=== PATIENT | female | born 1990 | race Caucasian/White ===

== ENCOUNTER 2021-12-13 11:55 | Inpatient (IN) ==
--- NOTE | 2021-12-13 12:20 | Emergency Department Note ---
Recheck HPI General Chief Complaint: Recheck/Abnormal Lab/Rx Stated Complaint: Low Potassium Time Seen by Provider: 12/13/21 11:56 Source: patient Mode of arrival: wheelchair Limitations: no limitations History of Present Illness HPI Narrative: 31 y/o female presents from [facility] with report of severe hypokalemia. The patient was seen by her PCP today for intractable low back pain. She has recent diagnosis of L5-S1 disc compression and LLE radiculopathy. There is also some question of a UTI. The patient had labs drawn and potassium was reported as <2.0, so she was sent here for evaluation. The patient denies heart palpitations, but is reporting some mild left-sided chest pain. She has had nausea but no vomiting for over a week with profuse daily diarrhea for about 5 days. She denies abdominal or flank pain. Denies F/C/S. Denies dysuria or hematuria. Denies melena or hematochezia. She reports a remote h/o hypokalemia for which she was given replacement. She denies new medications or supplements. Denies ilicit drug use. Occasional marijuana. Denies . Has Nexplanon. Has not tested for COVID. Not vaccinated for COVID. EKG shows NSR, no acute ST deviations to suggest ischemia. Normal intervals. One PVC. The patient is not diabetic and her presenting blood glucose is 123. Related Data Home Medications Medication Instructions Recorded Confirmed norethindrone 1 mg-ethinyl 1 tab PO QDAY 04/27/16 03/20/20 estradiol 35 mcg tablet (Nortrel) hydroxyzine HCl 25 mg tablet 25 mg PO BID 03/20/20 03/20/20 Previous Rx's Medication Instructions Recorded ondansetron HCl 4 mg tablet 4 mg PO Q6HP PRN Nausea And 03/20/20 (Zofran) Vomiting #30 tabs Allergies Allergy/AdvReac Type Severity Reaction Status Date / Time Bee Pollen Allergy Severe Anaphylaxis Verified 10/28/21 19:31 Review of Systems ROS ROS Narrative: Narrative: All systems ED: reviewed and negative except as stated. [facility] Narrative Patient History Narrative: Narrative: Medical/Surgical/Family History All Active Problems (Updated 12/13/21 @ 18:09 by Jane Coker PA-C) Cyst of Bartholin's gland duct (Acute) Hypokalemia (Acute) Dehydration (Acute) Concussion with loss of consciousness (Acute) Laceration (Acute) Fall (Acute) Nausea & vomiting (Acute) Close exposure to COVID-19 virus (Acute) Syncope (Acute) Acute alcohol intoxication (Acute) Alcohol consumption binge drinking (Acute) Abdominal pain (Acute) Precipitous delivery (Acute) labor (Acute) Decreased sensation of lower extremity (Acute) Numbness of right foot (Acute) Diarrhea (Acute) UTI (urinary tract infection) (Acute) Chest pain, rule out acute myocardial infarction (Acute) Acute posterior anal fissure (Acute) Hemorrhoids (Chronic) Urticaria (Chronic) Inguinal abscess (Chronic) Rash of body (Chronic) Medical History (Updated 12/13/21 @ 18:09 by Jane Coker PA-C) Cyst of Bartholin's gland duct Dehydration Hemorrhoids Hypokalemia Inguinal abscess Rash of body arms and legs X 4 days Urticaria Surgical History History of wisdom tooth extraction All four teeth extracted No pertinent past surgical history Family History Grandmother Diabetes Cancer Stroke Grandfather Cancer Heart disease Hypertension Other No pertinent family history Social History Smoking Status: Current every day smoker Alcohol Intake Frequency: a few times a month Exam Narrative Narrative: Narrative: General Limitations: no limitations Course Course Course Narrative: 31-year-old female presents for acute hypokalemia Reevaluation(s) Reevaluation #1: Will obtain serum potassium and give 60 mEq of oral potassium and 40 mEq of IV potassium EKG is not concerning for hyperkalemia. Troponin is undetectable. Check COVID screens and urine -->>>Negative Basic labs Reevaluation #2: UA is positive for nitrates and occult blood. Patient presents with a known UTI. We will give cefuroxime 500 mg x 1 dose Repeat potassium is 1.8. I have reached out to the hospitalist for admission. I have given additional 60 mEq oral and another 40 mEq of IV potassium. Vital Signs Vital signs: Vital Signs Temperature 97.5 F 12/13/21 12:01 Pulse Rate 101 H 12/13/21 12:01 Respiratory Rate 16 12/13/21 12:01 Blood Pressure 126/80 12/13/21 12:01 Pulse Oximetry (%) 96 12/13/21 12:01 Oxygen Delivery Method 12/13/21 12:01 Temperature 97.5 F 12/13/21 12:01 Pulse Rate 95 H 12/13/21 17:30 Respiratory Rate 30 H 12/13/21 17:30 Blood Pressure 118/89 12/13/21 17:30 Pulse Oximetry (%) 92 12/13/21 17:30 Oxygen Delivery Method 12/13/21 12:01 MDM MDM Narrative Medical decision making narrative: Hypokalemia Diarrhea Rule out chest pain UTI I suspect her hypokalemia is from extrarenal losses as she has had persistent d iarrhea for a week. She is not on medications that can cause hypokalemia, and is not diabetic. I have attempted replacement here in the ER with resulting potassium 1.8. The patient will need admission for monitoring and potassium replacement. Given her diarrhea I have ordered a stool culture. I have given her a dose of loperamide. Regarding her UTI, urine culture is pending and I have given her 1 dose of cefuroxime. EKG without acute changes to suggest ischemia and troponin was undetectable. Heart score 0. Lab Data Result diagrams: 12/13/21 16:07 Labs: Lab Results 12/13/21 12/13/21 12/13/21 Range/Units 12:19 12:25 12:25 POC Hct 40.0 (36-48) POC Sodium 139 (133-145) POC Potassium < 2.0 L* (3.3-5.1) Potassium < 1.5 L* (3.3-5.1) mmol/L POC Chloride 86 L (96-108) POC Total CO2 40.0 H (22-30) POC BUN < 3 L (6-20) POC Creatinine 0.5 L (0.6-1.2) POC Glucose 123 H (70-105) POC WB Ioniz Calcium 0.83 L (1.16-1.32) Magnesium 1.5 L (1.6-2.5) mg/dL Urine Color Urine Appearance (Clear) Urine pH (5.0-9.0) Ur Specific [place] (1.000-1.035) Urine Protein (Negative) mg/dL Urine Glucose (UA) (Negative) mg/dL Urine Ketones (Negative) mg/dL Urine Occult Blood (Negative) ulisses/mcL Urine Nitrate (Negative) Urine Bilirubin (Negative) mg/dL Urine Urobilinogen mg/dL Ur Leukocyte Esterase (Negative) /uL Urine RBC (0-3) /hpf Urine WBC (0-4) /hpf Ur Squamous Epith Cells (0-4) /hpf Urine Bacteria (0) /hpf Hyaline Casts (0-2) /lph Urine Mucus (None) /hpf Ur Culture Indicated? POC Troponin I (0.02-0.08) 12/13/21 12/13/21 12/13/21 Range/Units 12:25 13:23 16:07 POC Hct (36-48) POC Sodium (133-145) POC Potassium (3.3-5.1) Potassium 1.8 L* (3.3-5.1) mmol/L POC Chloride (96-108) POC Total CO2 (22-30) POC BUN (6-20) POC Creatinine (0.6-1.2) POC Glucose (70-105) POC WB Ioniz Calcium (1.16-1.32) Magnesium (1.6-2.5) mg/dL Urine Color Dark yellow Urine Appearance Clear (Clear) Urine pH 6.5 (5.0-9.0) Ur Specific [place] 1.025 (1.000-1.035) Urine Protein 100 mg/dl A (Negative) mg/dL Urine Glucose (UA) 100 mg/dl A (Negative) mg/dL Urine Ketones Negative (Negative) mg/dL Urine Occult Blood Trace-intact A (Negative) ulisses/mcL Urine Nitrate Positive A (Negative) Urine Bilirubin Negative (Negative) mg/dL Urine Urobilinogen Normal mg/dL Ur Leukocyte Esterase Negative (Negative) /uL Urine RBC 0 (0-3) /hpf Urine WBC 4 (0-4) /hpf Ur Squamous Epith Cells 1 (0-4) /hpf Urine Bacteria None (0) /hpf Hyaline Casts 3 H (0-2) /lph Urine Mucus Many A (None) /hpf Ur Culture Indicated? No POC Troponin I 0 L (0.02-0.08) ED POC Tests ED POC Tests: CONOR - SARS Antigen Negative HCG POC Results Negative Discharge Plan Patient/Caregiver Discharge Instructions Pt seen by JAZZ SINGER/PA only: Yes Clinical Impression: Hypokalemia, Diarrhea, UTI (urinary tract infection), Chest pain, rule out acute myocardial infarction Patient Disposition: Xfer As Inpt ([facility]) Follow up with: No,PCP [Primary Care Provider] - Prescriptions: No Action norethindrone-ethin estradiol [Nortrel ()] 1-35 mg-mcg tablet 1 tab PO QDAY hydroxyzine HCl 25 mg tablet 25 mg PO BID Label Comments: TAKE 1 TABLET BY MOUTH 4 TIMES DAILY NEEDED FOR ANXIETY due FOR FOLLOW UP in march 2020 ondansetron HCl [Zofran] 4 MG tablet 4 mg PO Q6HP PRN (Reason: Nausea And Vomiting) Qty: 30 0RF
[2021-12-13 12:23] LABS: POC Blood Urea Nitrogen < 3 (6-20); POC Calcium, Ionized 0.83 (1.16-1.32); POC Chloride 86 (96-108); POC Creatinine 0.5 (0.6-1.2); POC Glucose, Random 123 (70-105); POC Potassium < 2.0 (3.3-5.1); POC Sodium 139 (133-145)
[2021-12-13] MEDS ORDERED: POTASSIUM CHLORIDE 40 MEQ in DEXTROSE 5% IN WATER 500 ML IV ONE (12:26)
[2021-12-13] MEDS ORDERED: POTASSIUM CHLORIDE 20 MEQ TABLET PO ONE ×2 (12:26→17:27)
[2021-12-13] MEDS ORDERED: MAGNESIUM SULFATE 2 GM/50 ML BAG IV ONE (14:11)
[2021-12-13] MEDS ORDERED: NACL 0.9% W/KCL 20MEQ 1,000 ML IV SCH (14:15)
[2021-12-13 15:10] LABS: Appearance,Urine Clear (Clear); Bilirubin,Urine Negative (Negative); Color,Urine Dark yellow; Culture Indicated,Urine No; Ketones,Urine Negative (Negative); Leukocyte Esterase,Urine Negative /uL (Negative); Mucus,Urine MANY /hpf; Nitrate,Urine Positive (Negative); PH,Urine 6.5 (5.0-9.0); Specific Gravity,Urine 1.025 (1.000-1.035); Urine Blood Trace-intact ery/mcL (Negative); Urine Hyaline Cast 3 /lph (0-2); Urine RBC 0 /hpf (0-3); Urine Squamous Epithelial Cell 1 /hpf (0-4); Urine WBC 4 /hpf (0-4); Urobilinogen,Urine Normal
[2021-12-13] MEDS ORDERED: CEFUROXIME 500 MG TABLET PO ONE (17:38)
[2021-12-13] MEDS ORDERED: LOPERAMIDE 2 MG CAPSULE PO ONE (17:58)
[2021-12-13] MEDS ORDERED: LOPERAMIDE 2 MG CAPSULE PO PRN (18:48)
--- NOTE | 2021-12-13 18:55 | Internal Med History&Physical ---
HPI History of Present Illness Patient information: Note initiated : 12/13/21 at 6:50 pm Service Date, if different from initiated Date: [] Patient: Danay Goldman a 31 y/o F admitted on for Low Potassium. Chief Complaint: [Lab abnormalities] Chief complaint: Lab abnormalities History of present illness: Ms. Goldman is a 31 year old F with no known significant past medical history presents to the hospital after she was found to have severely low potassium of 1.5. The patient states that she was asymptomatic from a hypokalemia standpoint but presented to the [facility] for further evaluation of her back pa in. They did blood work and she was sent home. They called her after the labs resulted and told her she needed to go to the ER immediately. The patient states that she has been having diarrhea for the last week. She denies any diuretic use. She is not a diabetic and does not use insulin. 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 On arrival to the ER, she was hemodynamically stable and afebrile. Her potassium was repleted and the hospital service was asked admit the patient for further management and evaluation of her hypokalemia. Review of Systems All systems: reviewed and no additional remarkable complaints except as stated Constitutional Constitutional: Present as per HPI EENT Eyes: Present as per HPI; Absent blurry vision Cardiovascular Cardiovascular: Present as per HPI; Absent chest pain, dyspnea, dyspnea on exertion, leg edema or palpatations Respiratory Respiratory: Present as per HPI; Absent cough, dyspnea, dyspnea on exertion, wheezing or stridor Gastrointestinal Gastrointestinal: Present as per HPI; Absent abdominal pain, diarrhea, dysphagia, hematemesis, melena, nausea or vomiting Musculoskeletal Musculoskeletal: Present as per HPI; Absent joint swelling, limited range of motion, muscle cramps, muscle weakness or myalgias Integumentary Integumentary: Present as per HPI; Absent erythema, new lesions, rash or wounds Neurological Neurological: Present as per HPI; Absent abnormal gait, behavioral changes, focal weakness, headache(s), loss of vision, numbness, sensory deficit or syncope Endocrine Endocrine: Absent change in body appearance, fatigue or heat intolerance Hematologic/Lymphatic Hematologic/Lymphatic: Present as per HPI PFSH PFSH All Active Problems (Updated 12/13/21 @ 19:01 by Tony Casanova MD) Diarrhea (Acute) Cyst of Bartholin's gland duct (Acute) Hypokalemia (Acute) Dehydration (Acute) Concussion with loss of consciousness (Acute) Laceration (Acute) Fall (Acute) Nausea & vomiting (Acute) Close exposure to COVID-19 virus (Acute) Syncope (Acute) Acute alcohol intoxication (Acute) Alcohol consumption binge drinking (Acute) Abdominal pain (Acute) Precipitous delivery (Acute) labor (Acute) Decreased sensation of lower extremity (Acute) Numbness of right foot (Acute) Diarrhea (Acute) UTI (urinary tract infection) (Acute) Chest pain, rule out acute myocardial infarction (Acute) Acute posterior anal fissure (Acute) Hemorrhoids (Chronic) Urticaria (Chronic) Inguinal abscess (Chronic) Rash of body (Chronic) Medical History (Updated 12/13/21 @ 19:01 by Tony Casanova MD) Cyst of Bartholin's gland duct Dehydration Hemorrhoids Hypokalemia Inguinal abscess Rash of body arms and legs X 4 days Urticaria Surgical History History of wisdom tooth extraction All four teeth extracted No pertinent past surgical history Family History Grandmother Diabetes Cancer Stroke Grandfather Cancer Heart disease Hypertension Other No pertinent family history Social History smoking status: Current every day smoker alcohol intake frequency: a few times a month MEDS/ALLERGIES Home Medications and Allergies Home Medications Medication Instructions Recorded Confirmed Type norethindrone 1 mg-ethinyl 1 tab PO QDAY 04/27/16 03/20/20 History estradiol 35 mcg tablet (Nortrel) hydroxyzine HCl 25 mg tablet 25 mg PO BID 03/20/20 03/20/20 History ondansetron HCl 4 mg tablet 4 mg PO Q6HP PRN Nausea And 03/20/20 Rx (Zofran) Vomiting #30 tabs Allergies Allergy/AdvReac Type Severity Reaction Status Date / Time Bee Pollen Allergy Severe Anaphylaxis Verified 10/28/21 19:31 EXAM Constitutional Vitals: Temp Pulse Resp BP Pulse Ox O2 Del Method 97.5 F 105 H 25 H 118/89 97 12/13/21 12:01 12/13/21 18:10 12/13/21 18:10 12/13/21 17:30 12/13/21 18:10 12/13/21 12:01 General appearance: average body habitus Head Head exam: Present atraumatic, normal inspection and normocephalic Eye Eye exam: Present EOMI, normal appearance and PERRL; Absent conjunctival in jection ENT ENT exam: Present normal exam; Absent mucous membranes dry Neck Neck exam: Present full ROM; Absent lymphadenopathy Respiratory Respiratory exam: Present normal respiratory exam and CTAB; Absent decreased breath sounds, respiratory distress or wheezes Cardiovascular Cardiovascular exam: Present normal rate and rhythm and RRR; Absent JVD GI/Abdominal GI/Abdominal exam: Present normal bowel sounds and soft; Absent diminished bowel sounds, distended, guarding, mass, rebound or tenderness Neurological Exam Neurological exam: Present alert, CN II-XII intact and oriented X3 Psychiatric Psychiatric exam: Present normal affect and normal mood Skin Skin exam: Present intact and warm; Absent erythema, pallor, petechiae or rash DATA Data Completed and Pending Labs: Labs from last 24 hours 12/13/21 12/13/21 12/13/21 16:07 13:23 12:25 POC Hct POC Sodium POC Potassium Potassium 1.8 L* POC Chloride POC Total CO2 POC BUN POC Creatinine POC Glucose POC WB Ioniz Calcium Magnesium Urine Color Dark yellow Urine Appearance Clear Urine pH 6.5 Ur Specific [place] 1.025 Urine Protein 100 mg/dl A Urine Glucose (UA) 100 mg/dl A Urine Ketones Negative Urine Occult Blood Trace-intact A Urine Nitrate Positive A Urine Bilirubin Negative Urine Urobilinogen Normal Ur Leukocyte Esterase Negative Urine RBC 0 Urine WBC 4 Ur Squamous Epith Cells 1 Urine Bacteria None Hyaline Casts 3 H Urine Mucus Many A Ur Culture Indicated? No POC Troponin I 0 L 12/13/21 12/13/21 12/13/21 12:25 12:25 12:19 POC Hct 40.0 POC Sodium 139 POC Potassium < 2.0 L* Potassium < 1.5 L* POC Chloride 86 L POC Total CO2 40.0 H POC BUN < 3 L POC Creatinine 0.5 L POC Glucose 123 H POC WB Ioniz Calcium 0.83 L Magnesium 1.5 L Urine Color Urine Appearance Urine pH Ur Specific [place] Urine Protein Urine Glucose (UA) Urine Ketones Urine Occult Blood Urine Nitrate Urine Bilirubin Urine Urobilinogen Ur Leukocyte Esterase Urine RBC Urine WBC Ur Squamous Epith Cells Urine Bacteria Hyaline Casts Urine Mucus Ur Culture Indicated? POC Troponin I A/P Assessment and plan (1) UTI (urinary tract infection): Status: Acute (2) Hypokalemia: Status: Acute (3) Dehydration: Status: Acute (4) Diarrhea: Status: Acute Narrative A/P Narrative: The patient likely had acute hypokalemia in the setting of GI losses. We will start Imodium 2 mg every 6 hours p.o. standing. She will be resuscitated with IV fluids. I will start LR 75 cc an hour. We will give her KCl 60 mEq p.o. twice daily and repeat BMP tomorrow morning. The patient will have a urine culture and will follow up. She has been given a dose of cephalosporin in the ER. Time Spent With Patient Time: Total time spent is greater than 50% in coordination of care (as documented) at patient's floor/unit and/or counseling patient: Total time spent with greater than 50% in coordination of care (as documented) at patient's floor/unit and/or counseling patient:: 50 - 70 minutes
[2021-12-13] MEDS: LOPERAMIDE 2 MG CAPSULE PO SCH (19:01)
[2021-12-13] MEDS ORDERED: ACETAMINOPHEN 325 MG TABLET PO PRN (19:20)
[2021-12-13] MEDS ORDERED: ONDANSETRON 4 MG/2 ML VIAL IV PRN (19:20)
[2021-12-13] MEDS ORDERED: ACETAMINOPHEN 325 MG TABLET PO ONE (20:22)
[2021-12-13] MEDS: LACTATED RINGERS 1,000 ML IV SCH (20:51)
[2021-12-13] MEDS: 0.9 % SODIUM CHLORIDE 10 ML SYRINGE IV SCH (20:52)
[2021-12-13] MEDS: POTASSIUM CHLORIDE 20 MEQ TABLET PO SCH (21:46)
[2021-12-13] MEDS: DOCUSATE SODIUM 100 MG CAPSULE PO SCH (21:47)
[2021-12-13] MEDS: SENNOSIDES 1 TABLET PO SCH (21:47)
[2021-12-14] MEDS: LOPERAMIDE 2 MG CAPSULE PO SCH ×4 (01:30→19:27)
[2021-12-14] MEDS: 0.9 % SODIUM CHLORIDE 10 ML SYRINGE IV SCH ×3 (05:10→21:08)
[2021-12-14 07:08] LABS: Blood Urea Nitrogen < 2 mg/dL (6-20); Calcium 7.3 mg/dL (8.6-10.4); Carbon Dioxide 38 mmol/L (22-30); Chloride 99 mmol/L (96-108); Glomerular Filtration Rate 139; Glucose 90 mg/dL (70-105)
[2021-12-14] MEDS ORDERED: MAGNESIUM SULFATE 4 GM/100 ML BAG IV ONE (07:42)
[2021-12-14] MEDS: POTASSIUM CHLORIDE 20 MEQ TABLET PO SCH ×3 (07:48→17:42)
[2021-12-14] MEDS: DOCUSATE SODIUM 100 MG CAPSULE PO SCH ×2 (08:23→19:20)
[2021-12-14] MEDS: LACTATED RINGERS 1,000 ML IV SCH ×3 (10:15→23:29)
--- NOTE | 2021-12-14 13:09 | Internal Med Progress Note ---
SUBJECTIVE Subjective Patient information: Note initiated : 12/14/21 at 1:07 pm Service Date, if different from initiated Date: [] Patient: Danay Goldman 31 y/o F admitted on 12/13/21 for Low Potassium. Chief Complaint: [Lab abnormalities] Principal diagnosis: Severe hypokalemia, diarrhea, UTI Interval history: The patient is asymptomatic and resting comfortably in bed while using her iPad. She had no active complaints or concerns. Constitutional Vitals: Vital Signs Temp Pulse Resp BP Pulse Ox O2 Del Method 98.1 F 87 18 112/83 95 12/14/21 12:00 12/14/21 12:00 12/14/21 12:00 12/14/21 12:00 12/14/21 12:00 12/14/21 12:00 Period Temp Pulse Resp BP Sys/Britt Pulse Ox O2 Del Method O2 Flow Rate Last 24 Hr 97.5 F-98.8 F 83-106 16-35 102-123/61-89 92-99 Room Air-Room Air Intake and Output 12/13/21 12/14/21 12/14/21 21:59 05:59 13:59 Intake Total 958 491 9219 Output Total 650 Balance 821 687 1976 Weight 75.977 kg Intake & Output: Intake & Output 12/13/21 12/14/21 12/14/21 21:59 05:59 13:59 Intake Total 541 768 7291 Output Total 650 Balance 538 444 2906 Weight 75.977 kg Intake: IV 570 1000 Lactated Ringers 1,000 ml @ 75 1000 mls/hr IV .[id number] [facility] Rx#: [id number] Potassium Chloride 40 Meq In 520 Dextrose 5% in Water 500 ml @ 130 mls/hr IV ONCE ONE Rx#: [id number] Oral 750 Output: Void Amount 650 Other: Urine Appearance Clear Urine Color [place] General appearance: average body habitus Head Head exam: Present atraumatic and normal inspection Eye Eye exam: Present normal appearance ENT ENT exam: Present mucous membranes moist, normal exam and normal external ear exam Neck Neck exam: Present normal inspection Respiratory Respiratory exam: Present normal respiratory exam Cardiovascular Cardiovascular exam: Present normal rate and rhythm GI/Abdominal GI/Abdominal exam: Present normal bowel sounds Back Exam Back exam: Present normal inspection Neurological Exam Neurological exam: Present alert and oriented X3 Skin Skin exam: Present intact and warm OBJ DATA Labs CBC & Chem 7: 12/14/21 05:36 Labs: Abnormal Lab Results 12/14/21 12/13/21 12/13/21 05:36 16:07 13:23 POC Potassium Potassium 1.9 L* 1.8 L* POC Chloride Carbon Dioxide 38 H POC Total CO2 POC BUN BUN < 2 L Creatinine 0.4 L POC Creatinine POC Glucose Calcium 7.3 L POC WB Ioniz Calcium Magnesium Urine Protein 100 mg/dl A Urine Glucose (UA) 100 mg/dl A Urine Occult Blood Trace-intact A Urine Nitrate Positive A Hyaline Casts 3 H Urine Mucus Many A POC Troponin I 12/13/21 12/13/21 12/13/21 12:25 12:25 12:25 POC Potassium Potassium < 1.5 L* POC Chloride Carbon Dioxide POC Total CO2 POC BUN BUN Creatinine POC Creatinine POC Glucose Calcium POC WB Ioniz Calcium Magnesium 1.5 L Urine Protein Urine Glucose (UA) Urine Occult Blood Urine Nitrate Hyaline Casts Urine Mucus POC Troponin I 0 L 12/13/21 12:19 POC Potassium < 2.0 L* Potassium POC Chloride 86 L Carbon Dioxide POC Total CO2 40.0 H POC BUN < 3 L BUN Creatinine POC Creatinine 0.5 L POC Glucose 123 H Calcium POC WB Ioniz Calcium 0.83 L Magnesium Urine Protein Urine Glucose (UA) Urine Occult Blood Urine Nitrate Hyaline Casts Urine Mucus POC Troponin I Meds: Medications Acetaminophen (Acetaminophen 325 Mg Tablet) 650 mg PO Q6HP PRN; Protocol PRN Reason: Per Pain Protocol/Fever > 101 Last Admin: 12/13/21 20:14 Dose: 650 mg Docusate Sodium (Docusate Sodium 100 Mg Capsule) 100 mg PO BID [facility] Last Admin: 12/14/21 08:23 Dose: Not Given Lactated Ringer's (Lactated Ringers) 1,000 mls @ 75 mls/hr IV .[id number] [facility] Last Admin: 12/14/21 10:15 Dose: 75 mls/hr Loperamide HCl (Loperamide 2 Mg Capsule) 2 mg PO Q6H [facility] Last Admin: 12/14/21 12:51 Dose: 2 mg Ondansetron HCl (Ondansetron 4 Mg/2 Ml Vial) 4 mg IV Q6HP PRN PRN Reason: Nausea And Vomiting Last Admin: 12/13/21 21:52 Dose: 4 mg Potassium Chloride (Potassium Chloride 20 Meq Tablet) 40 meq PO TIDCC [facility] Last Admin: 12/14/21 12:51 Dose: 40 meq Senna (Sennosides 1 Tablet) 2 tab PO HS [facility] Last Admin: 12/13/21 21:47 Dose: Not Given Sodium Chloride (0.9 % Sodium Chloride 10 Ml Syringe) 10 ml IV Q8 [facility] Last Admin: 12/14/21 12:52 Dose: Not Given Trimethoprim/Sulfamethoxazole (Sulfamethoxazole/Trimethoprim 1 Tablet) 1 tab PO BID [facility]; Protocol A/P Assessment and plan (1) UTI (urinary tract infection): Status: Acute (2) Hypokalemia: Status: Acute (3) Dehydration: Status: Acute (4) Diarrhea: Status: Acute Narrative A/P Narrative: The patient likely had acute hypokalemia in the setting of GI losses. We will start Imodium 2 mg every 6 hours p.o. standing. She will be resuscitated with IV fluids. I will start LR 75 cc an hour. We will give her KCl 60 mEq p.o. twice daily and repeat BMP tomorrow morning. The patient will have a urine cul ture and will follow up. She has been given a dose of cephalosporin in the ER. 12/14: The patient is likely potassium wasting in the setting of severe magnesium deficiency. We will replete her magnesium and potassium today. She has ongoing diarrhea and she has been treated with Imodium. We will repeat her BMP in the morning. She will be started on Bactrim for previously diagnosed UTI. Time Spent With Patient Time: Total time spent is greater than 50% in coordination of care (as documented) at patient's floor/unit and/or counseling patient: Total time spent with greater than 50% in coordination of care (as documented) at patient's floor/unit and/or counseling patient:: 25 - 35 minutes QUALITY VTE Deep Vein Thrombosis/Pulmonary Embolism Present on Admission: No
[2021-12-14] MEDS: SULFAMETHOXAZOLE/TRIMETHOPRIM 1 TABLET PO SCH ×2 (13:12→21:15)
[2021-12-14] MEDS: SENNOSIDES 1 TABLET PO SCH (19:20)
[2021-12-15] MEDS: LOPERAMIDE 2 MG CAPSULE PO SCH ×3 (00:42→12:06)
[2021-12-15] MEDS: 0.9 % SODIUM CHLORIDE 10 ML SYRINGE IV SCH ×2 (04:29→12:07)
[2021-12-15 06:41] LABS: Blood Urea Nitrogen < 2 mg/dL (6-20); Calcium 7.6 mg/dL (8.6-10.4); Carbon Dioxide 32 mmol/L (22-30); Chloride 102 mmol/L (96-108); Glomerular Filtration Rate 139; Glucose 87 mg/dL (70-105)
[2021-12-15] MEDS: SULFAMETHOXAZOLE/TRIMETHOPRIM 1 TABLET PO SCH (07:46)
[2021-12-15] MEDS: POTASSIUM CHLORIDE 20 MEQ TABLET PO SCH ×2 (07:47→11:10)
[2021-12-15] MEDS: DOCUSATE SODIUM 100 MG CAPSULE PO SCH (07:48)
[2021-12-15] MEDS ORDERED: POTASSIUM CHLORIDE 20 MEQ TABLET PO ONE (08:37)
[2021-12-15] MEDS ORDERED: MAGNESIUM SULFATE 2 GM/50 ML BAG IV ONE (08:37)
[2021-12-15] MEDS: LACTATED RINGERS 1,000 ML IV SCH ×2 (11:14→14:17)
[2021-12-15 14:11] LABS: Blood Urea Nitrogen < 2 mg/dL (6-20); Calcium 7.8 mg/dL (8.6-10.4); Carbon Dioxide 25 mmol/L (22-30); Chloride 103 mmol/L (96-108); Glomerular Filtration Rate 129; Glucose 121 mg/dL (70-105)
--- NOTE | 2021-12-15 15:10 | Discharge Summary ---
Discharge Provider Provider IMPORTANT FOLLOW-UP INFORMATION FOR PCP: 1. Repeat BMP within 1 week 2. 1 more day of antibiotics left 3. Consider BRAT diet for gastroenteritis Patient information: Note initiated : 12/15/21 at 3:09 pm Service Date, if different from initiated Date: [] Patient: Danay Goldman 31 y/o F admitted on 12/13/21 for Low Potassium. Chief Complaint: [] Date of admission: 12/13/21 19:10 Discharge date: 12/15/21 Primary care physician: PCP No Consults: 12/13/21 Consult to Physician [CONS] Stat Comment: Consulting Provider: Tony Casanova Reason For Exam: Physician to Consult COURSE Hospital Course Hospital course: A/P Narrative: The patient likely had acute hypokalemia in the setting of GI losses. We will start Imodium 2 mg every 6 hours p.o. standing. She will be resuscitated with IV fluids. I will start LR 75 cc an hour. We will give her KCl 60 mEq p.o. twice daily and repeat BMP tomorrow morning. The patient will have a urine culture and will follow up. She has been given a dose of cephalosporin in the ER. 12/14: The patient is likely potassium wasting in the setting of severe magnesium deficiency. We will replete her magnesium and potassium today. She has ongoing diarrhea and she has been treated with Imodium. We will repeat her BMP in the morning. She will be started on Bactrim for previously diagnosed UTI. 12/15: With standing dose Imodium, the patient's diarrhea has finally improved. We continue to replete her potassium aggressively and is now 3.0. The patient is eager to return home. She will be discharged home and continue Imodium. She has 1 additional day left of Bactrim for her underlying UTI. Discharge diagnosis: Diarrhea, UTI, severe hypokalemia, hypomagnesemia Time Spent with Patient Time attestation: Total time spent providing and/or coordinating discharge services: Time spent: Greater than 30 minutes EXAM Constitutional Vitals: Temp Pulse Resp BP Pulse Ox O2 Del Method 97.0 F 93 H 16 104/68 97 12/15/21 11:41 12/15/21 11:41 12/15/21 11:41 12/15/21 11:41 12/15/21 11:41 12/15/21 11:41 General appearance: average body habitus Head Head exam: Present atraumatic, normal inspection and normocephalic Eye Eye exam: Present EOMI, normal appearance and PERRL; Absent conjunctival injection ENT ENT exam: Present normal exam; Absent mucous membranes dry Neck Neck exam: Present full ROM; Absent lymphadenopathy Respiratory Respiratory exam: Present normal respiratory exam and CTAB; Absent decreased breath sounds, respiratory distress or wheezes Cardiovascular Cardiovascular exam: Present normal rate and rhythm and RRR; Absent JVD GI/Abdominal GI/Abdominal exam: Present normal bowel sounds and soft; Absent diminished bowel sounds, distended, guarding, mass, rebound or tenderness Neurological Exam Neurological exam: Present alert, CN II-XII intact and oriented X3 Psychiatric Psychiatric exam: Present normal affect and normal mood Skin Skin exam: Present intact and warm; Absent erythema, pallor, petechiae or rash Discharge Data Data Completed and Pending Labs on day of discharge: Labs from last 24 hours 12/15/21 12/15/21 13:06 05:23 Sodium 142 142 Potassium 3.0 L 2.7 L* Chloride 103 102 Carbon Dioxide 25 32 H Anion Gap 14.0 8.0 BUN < 2 L < 2 L Creatinine 0.5 L 0.4 L GFR Calculation 129 139 Glucose 121 H 87 Calcium 7.8 L 7.6 L Magnesium 2.1 Discharge Plan Patient/Caregiver Discharge Instructions Activity: increase activity as tolerated Diet: Regular Diet Instructions: Acute Diarrhea (GEN) Prescriptions: New loperamide 2 mg Capsule 2 mg PO Q6H 2 Days Qty: 8 0RF Continued sulfamethoxazole-trimethoprim [Bactrim DS] 800-160 mg Tablet 1 tab PO BID Nexplanon 68 mg Implant 1 implant SUBDERMAL Q8 Rx Instructions: Implant for contraceptive Follow Up Plan Follow up with: No,PCP [Primary Care Provider] - Patient Disposition: Home, Self-Care Rehab Potential: Good I certify that the patient requires SNF services: Yes Overall status at discharge: patient is progressing back to baseline Discharge Orders: Discharge Order (Routine); Ordered 12/15/21 Ordered By: Tony XAVIER VTE Deep Vein Thrombosis/Pulmonary Embolism Present on Admission: No
== END 2021-12-15 16:27 | disposition home or self-care (01) | DRG 392 ==
LOC: ED 11:55 → MEDSUR 19:10
PROVIDERS: ADMIT Student in an Organized Health Care Education/Training Program; ATTEND Student in an Organized Health Care Education/Training Program